=== PATIENT | male | born 1955 | race Caucasian/White ===

== ENCOUNTER 2024-05-08 13:22 | Outpatient (CLI) | payer MEDICARE, SELFPAY | END 2024-05-08 13:23 | disposition home or self-care (01) | PROVIDERS: PCP Family Medicine; Visit Provider Family Medicine | DX: E78.00 Pure hypercholesterolemia, unspecified (principal); Z13.21 Encounter for screening for nutritional disorder; Z12.5 Encounter for screening for malignant neoplasm of prostate; Z13.29 Encounter for screening for other suspected endocrine disorder | CPT/HCPCS: 80053; 82607; 84443; G0103 ==

== ENCOUNTER 2025-05-12 07:52 | Outpatient (CLI) | payer MEDICARE, SELFPAY | END 2025-05-12 07:53 | disposition home or self-care (01) | LOC: NFLDREF 05-14 17:01 | PROVIDERS: PCP Family Medicine; Referring Provider Family Medicine; Visit Provider Family Medicine | DX: E78.00 Pure hypercholesterolemia, unspecified (principal); E78.2 Mixed hyperlipidemia; G62.9 Polyneuropathy, unspecified; E55.9 Vitamin D deficiency, unspecified; R73.01 Impaired fasting glucose; Z12.5 Encounter for screening for malignant neoplasm of prostate | CPT/HCPCS: 80053; 80061; 82306; G0103 ==

== ENCOUNTER 2025-08-25 09:02 | Outpatient (CLI) | payer MEDICARE, SELFPAY | END 2025-08-25 09:03 | disposition home or self-care (01) | LOC: NFLDREF 08-27 14:16 | PROVIDERS: PCP Family Medicine; Referring Provider Family Medicine; Visit Provider Family Medicine | DX: R63.4 Abnormal weight loss (principal) | CPT/HCPCS: 80053; 84443 ==